=== PATIENT | female | born 1975 | race Caucasian/White ===

== ENCOUNTER 2022-01-24 12:45 | Outpatient (CLI) | payer OTHER, SELFPAY ==
--- NOTE | 2022-01-24 13:00 | CRLHL7_ITS ---
For Patients: As a result of the Century Cures Act, medical imaging exams and procedure reports are released immediately into your electronic medical record. You may view this report before your referring provider. If you have questions, please contact your health care provider. BILATERAL DIGITAL SCREENING MAMMOGRAM WITH TOMOSYNTHESIS AND COMPUTER-AIDED DETECTION CLINICAL HISTORY: Routine screening exam. COMPARISON: 06/05/2018, 05/04/2017. TECHNIQUE: Digital mammogram in CC and MLO projections including computer-aided detection (CAD). Tomosynthesis utilized. BREAST COMPOSITION: The breasts are heterogeneously dense, which may obscure small masses. FINDINGS: RIGHT Breast: No suspicious findings. LEFT Breast: Dense masslike area within the lower outer quadrant LEFT breast 6 cm from the nipple, possibly representing two separate ovoid densities. IMPRESSION: LEFT breast asymmetry/mass. RECOMMENDATIONS: Additional mammographic views of the LEFT breast including 3D spot compression CC/MLO. LEFT breast ultrasound may also be required. The [facility] will contact the patient for follow-up. BI-RADS Category 0: Incomplete: Need Additional Imaging Evaluation and/or Prior Mammograms for Comparison A lay language report of this examination will be provided to the patient. Dictated by Wilbur Márquez MD @ 01/25/2022 12:02:04 PM jj/Dictated by: Wilbur Márquez MD @ 01/25/2022 12:02:00 PM (Electronically Signed)
== END 2022-01-24 12:46 | disposition home or self-care (01) ==
LOC: MAMMO 12:45
PROVIDERS: Visit Provider Nurse Practitioner Family
DX: Z12.31 Encounter for screening mammogram for malignant neoplasm of breast (principal); N63.20 Unspecified lump in the left breast, unspecified quadrant; R92.2 Inconclusive mammogram
CPT/HCPCS: 77063; 77067

== ENCOUNTER 2022-01-30 10:38 | Outpatient (CLI) | payer OTHER, SELFPAY ==
--- NOTE | 2022-01-30 10:45 | CRLHL7_ITS ---
For Patients: As a result of the Century Cures Act, medical imaging exams and procedure reports are released immediately into your electronic medical record. You may view this report before your referring provider. If you have questions, please contact your health care provider. LEFT DIAGNOSTIC MAMMOGRAM WITH COMPUTER-AIDED DETECTION AND TOMOSYNTHESIS, 01/30/2022 LEFT BREAST ULTRASOUND, 01/30/2022 CLINICAL HISTORY: This is a 46-year-old female who was here for evaluation of LEFT breast asymmetries seen on a screening mammogram. In the interim, the patient also states that she is here for an enlarged LEFT breast lump in the lateral LEFT breast. TECHNIQUE: These mammographic images have been obtained using full-field digital technique. These mammographic images were interpreted with the benefit of computer-aided detection. Breast Tomosynthesis was used in this interpretation. COMPARISON FILM: 01/24/2022 and 06/25/2018. BREAST COMPOSITION: The breasts are heterogeneously dense, which may obscure small masses. FINDINGS: Spot compression views demonstrate slight persistence of round asymmetry. Ultrasound over the LEFT lateral breast at the 4 o???clock position 6 cm from the nipple and between the 4 o???clock and 5 o???clock position in the area of lump and also in the area of asymmetry demonstrates a 2.5 x 1.3 x 1.5 cm lobulated complicated cyst with multiple septations. Additionally, adjacent complex cyst at the 5 o???clock position 6 cm from the nipple measuring 1.7 x 1.2 x 1.6 cm possible mural nodule present. The lesion is indeterminate. IMPRESSION: In the area of palpable lump and asymmetry, there is a lobulated complicated cyst with several septations at the 4 o???clock position 6 cm from the nipple measuring 2.5 x 1.3 x 1.5 cm. This will be aspirated given that this has rapidly enlarged per the patient and palpable. Additionally, there is an indeterminate complex cyst adjacent at the 5 o???clock position 6 cm from the nipple measuring 1.7 x 1.2 x 1.6 cm with possible peripheral nodule. Recommend biopsy of this lesion. ASSESSMENT: BI-RADS Category 4: Suspicious A lay language report of this examination will be provided to the patient. Marisa Noel M.D. Diagnostic/Breast Radiologist [email or web address] PT/Dictated by: Marisa Noel MD @ 01/30/2022 11:48:00 AM (Electronically Signed)
--- NOTE | 2022-01-30 11:15 | CRLHL7_ITS ---
For Patients: As a result of the Century Cures Act, medical imaging exams and procedure reports are released immediately into your electronic medical record. You may view this report before your referring provider. If you have questions, please contact your health care provider. PLEASE SEE LEFT DIAGNOSTIC MAMMOGRAM OF SAME DAY. CRL:[email or web address] PT/Dictated by: Marisa Noel MD @ 01/30/2022 11:48:00 AM (Electronically Signed)
== END 2022-01-30 10:39 | disposition home or self-care (01) ==
LOC: MAMMO 10:40
PROVIDERS: Visit Provider Nurse Practitioner Family
DX: R92.8 Other abnormal and inconclusive findings on diagnostic imaging of breast (principal); N60.02 Solitary cyst of left breast; R92.2 Inconclusive mammogram
CPT/HCPCS: 76642; 77065; G0279

== ENCOUNTER 2022-02-06 08:02 | Outpatient (CLI) | payer OTHER, SELFPAY ==
--- NOTE | 2022-02-06 08:15 | CRLHL7_ITS ---
For Patients: As a result of the Century Cures Act, medical imaging exams and procedure reports are released immediately into your electronic medical record. You may view this report before your referring provider. If you have questions, please contact your health care provider. ULTRASOUND-GUIDED BREAST BIOPSY AND POST-BIOPSY DIGITAL MAMMOGRAM FOR BIOPSY MARKER PLACEMENT CLINICAL HISTORY: Complicated cyst with possible mural nodule/wall thickening COMPARISON STUDIES: Mammogram 01/24/2022 and 01/30/2022, ultrasound 01/30/2022. TECHNIQUE: Real-time ultrasound with image documentation was used for targeting the breast lesion. Core biopsy specimens were obtained using an automated gun with an 18 gauge biopsy needle. Post-biopsy CC and ML digital mammograms were obtained to document position of the biopsy marker. CONSENT and TIME OUT: The procedure, risks, and alternatives were explained to the patient and a consent was signed. [place] Protocol was followed including pre-procedure verification that relevant information/documentation was available, reviewed and properly matched to the patient; consent accurate and complete; and equipment and supplies available. Time Out was conducted just prior to starting procedure to verify the four required elements: patient identity, correct side/site marked (if applicable), procedure, relevant images/results properly labeled and displayed (if applicable). PROCEDURE: The patient was positioned supine on the ultrasound table. The breast was prepped with ChloraPrep. 5 cc 1 percent lidocaine used for local anesthesia. Core samples were obtained. A sterile metal biopsy clip was placed percutaneously to denice the lesion position within the breast. The specimens were placed in 10% formalin and sent to the pathology department. Pressure was held on the biopsy site until all bleeding subsided. The skin incision was closed with Steri-Strips. An ice pack was positioned over the biopsy site. Post-biopsy instructions were reviewed with the patient, and a written copy was given to her. LATERALITY: LEFT breast. LESION: Lobular complicated cyst with thick wall and possible mural nodule measuring 1.7 x 1.2 x 1.6 cm at 5 o`clock 6 cm from the nipple. SUSPICION FOR MALIGNANCY: Low. NUMBER OF SAMPLES: 5. BIOPSY CLIP SHAPE: Oval/coil. PROXIMITY OF CLIP TO TARGET: Within the lesion. IMPRESSION: Ultrasound-guided breast biopsy. When the pathology report is available, an addendum to this report will be made. ACR not applicable Dictated by Wilbur Márquez MD @ 02/06/2022 9:24:44 AM jj/Dictated by: Wilbur Márquez MD @ 02/06/2022 9:24:00 AM IMPRESSION: Pathology consistent with benign fibrous breast tissue and inflamed cyst wall without atypia or malignancy. This is concordant. Resume routine screening mammography. Dictated by Wilbur Márquez MD @ Feb 06 2022 9:24AM Signed by:?Wilbur Márquez MD @02/06/2022 12:42:25 PM (Electronically Signed)
--- NOTE | 2022-02-06 08:15 | CRLHL7_ITS ---
For Patients: As a result of the Century Cures Act, medical imaging exams and procedure reports are released immediately into your electronic medical record. You may view this report before your referring provider. If you have questions, please contact your health care provider. ULTRASOUND-GUIDED BREAST CYST ASPIRATION CLINICAL HISTORY: COMPLICATED/COMPLEX CYST LEFT BREAST. COMPARISON STUDIES: Ultrasound and mammogram 01/30/2022, mammogram 01/24/2022. TECHNIQUE: Real-time ultrasound with image documentation was used for targeting the breast lesion. Cyst aspiration with an 18-gauge needle performed. Post-biopsy CC and ML digital mammograms were obtained to document position of the biopsy marker. CONSENT and TIME OUT: The procedure, risks, and alternatives were explained to the patient and a consent was signed. [place] Protocol was followed including pre-procedure verification that relevant information/documentation was available, reviewed and properly matched to the patient; consent accurate and complete; and equipment and supplies available. Time Out was conducted just prior to starting procedure to verify the four required elements: patient identity, correct side/site marked (if applicable), procedure, relevant images/results properly labeled and displayed (if applicable). PROCEDURE: The patient was positioned supine on the ultrasound table. The breast was prepped with ChloraPrep. 5 cc 1 percent lidocaine used for local anesthesia. 2.5 cc of cloudy serosanguineous fluid was removed and discarded. LATERALITY: LEFT Breast. LESION: Lobular complicated/complex cyst mid depth measuring 2.5 x 1.3 x 1.5 cm at 4 o`clock 6 cm from the nipple. IMPRESSION: Ultrasound-guided cyst aspiration. ACR not applicable Dictated by Wilbur Márquez MD @ 02/06/2022 9:23:02 AM jj/Dictated by: Wilbur Márquez MD @ 02/06/2022 9:23:00 AM (Electronically Signed)
--- NOTE | 2022-02-06 09:00 | CRLHL7_ITS ---
For Patients: As a result of the Century Cures Act, medical imaging exams and procedure reports are released immediately into your electronic medical record. You may view this report before your referring provider. If you have questions, please contact your health care provider. PLEASE SEE ULTRASOUND-GUIDED LEFT BREAST BIOPSY PERFORMED SAME DAY CRL:[email or web address] huffman/Dictated by: Wilbur Márquez MD @ 02/06/2022 9:58:00 AM (Electronically Signed)
== END 2022-02-06 08:03 | disposition home or self-care (01) ==
LOC: US 08:03
PROVIDERS: Visit Provider Nurse Practitioner Family
DX: N60.02 Solitary cyst of left breast (principal); D24.2 Benign neoplasm of left breast
CPT/HCPCS: 19000; 19083; 76942; 77065; 88305; A4648; A4649